=== PATIENT | male | born 1980 | race Two or more races ===

== ENCOUNTER 2018-09-04 18:58 | Emergency (ER) | payer SELFPAY ==
--- NOTE | 2018-09-04 19:15 | ER Document Report ---
ED Medical Screen (RME) - General Chief Complaint: Flank Pain Stated Complaint: FLANK PAIN Time Seen by Provider: 09/04/18 19:10 Primary Care Provider: GUS NELSON MD [Primary Care Provider] - Follow up as needed Mode of Arrival: Ambulatory Information source: Patient Notes: Patient presents to the emergency department with left-sided flank pain since yesterday. Reports he has been taking ibuprofen without relief of symptoms. Reports he is vomited twice. Denies fever diarrhea. Denies difficulty voiding. Denies testicular pain. Denies history of kidney stones. Reports his mother has history of kidney stones. Reports he drinks mild mainly water. Denies trauma patient left flank tender to palpation I have greeted and performed a rapid initial assessment of this patient. A comprehensive ED assessment and evaluation of the patient, analysis of test results and completion of the medical decision making process will be conducted by additional ED providers. Dictation of this chart was performed using voice recognition software; therefore, there may be some unintended grammatical errors. TRAVEL OUTSIDE OF THE [place] IN LAST 30 DAYS: No - Related Data Allergies/Adverse Reactions: No Known Allergies Allergy (Verified 09/04/18 18:59) Physical Exam - Vital signs Vitals: Temp Pulse Resp BP Pulse Ox 97.7 F 83 16 137/96 H 97 09/04/18 19:03 09/04/18 19:03 09/04/18 19:03 09/04/18 19:03 09/04/18 19:03 Course - Vital Signs Vital signs: Temp Pulse Resp BP Pulse Ox 97.7 F 83 16 137/96 H 97 09/04/18 19:03 09/04/18 19:03 09/04/18 19:03 09/04/18 19:03 09/04/18 19:03 Doctor's Discharge - Discharge Referrals: GUS NELSON MD [Primary Care Provider] - Follow up as needed
[2018-09-04 20:01] LABS: ABSOLUTE BASOPHILS # (AUTO) 0.1 10^3/uL (0.0-0.2); ABSOLUTE EOSINOPHILS # (AUTO) 0.2 10^3/uL (0.0-0.6); ABSOLUTE LYMPHOCYTES (AUTO) 2.7 10^3/uL (0.5-4.7); ABSOLUTE NEUT (AUTO) 9.6 10^3/uL (1.7-8.2); BASOPHILS % (AUTO) 0.4 % (0-2); EOSINOPHILS % (AUTO) 1.2 % (0-6); MEAN CORPUSCULAR HEMOGLOBIN 31.2 pg (27.0-33.4); MEAN CORPUSCULAR VOLUME 92 fl (80-97); MONOCYTES % (AUTO) 7.2 % (3-13); PLATELET COUNT 278 10^3/uL (150-450); RED BLOOD COUNT 4.79 10^6/uL (4.35-5.55); RED CELL DISTRIBUTION WIDTH 13.7 % (11.5-14.0); SEGMENTED NEUTROPHILS % (AUTO) 71.2 % (42-78); TOTAL CELLS COUNTED % (AUTO) 100 %; WHITE BLOOD COUNT 13.4 10^3/uL (4.0-10.5)
[2018-09-04 20:05] LABS: APPEARANCE,URINE CLEAR; BILIRUBIN,URINE NEGATIVE (NEGATIVE); COLOR,URINE STRAW; GLUCOSE, URINE NEGATIVE (NEGATIVE); KETONES,URINE NEGATIVE (NEGATIVE); LEUKOCYTE ESTERASE,URINE NEGATIVE (NEGATIVE); NITRITE,URINE NEGATIVE (NEGATIVE); PROTEIN,URINE 100 mg/dL (NEGATIVE); URINE SPECIFIC GRAVITY 1.008; UROBILINOGEN,URINE NEGATIVE mg/dL (<2.0)
[2018-09-04 20:19] LABS: ALANINE AMINOTRANSFERASE 24 U/L (21-72); ALBUMIN 4.4 g/dL (3.5-5.0); ALKALINE PHOSPHATASE 80 U/L (38-126); ANION GAP 12 (5-19); ASPARTATE AMINO TRANSFERASE 22 U/L (17-59); BILIRUBIN,DIRECT 0.3 mg/dL (0.0-0.4); BILIRUBIN,TOTAL 0.6 mg/dL (0.2-1.3); BLOOD UREA NITROGEN 15 mg/dL (7-20); CALCIUM 9.6 mg/dL (8.4-10.2); CARBON DIOXIDE 25 mmol/L (22-30); CHLORIDE 104 mmol/L (98-107); GLUCOSE 108 mg/dL (75-110); POTASSIUM 4.3 mmol/L (3.6-5.0); SODIUM 140.7 mmol/L (137-145); TOTAL PROTEIN 7.5 g/dL (6.3-8.2)
[2018-09-04] MEDS ORDERED: ACETAMINOPHEN 325 MG TABLET PO ONE (20:29)
[2018-09-04] MEDS ORDERED: ACETAMINOPHEN 325 MG TABLET ONE (20:30)
--- NOTE | 2018-09-04 20:30 | RADIOLOGY REPORT (SQ) ---
EXAM DESCRIPTION: CT ABDOMEN PELVIS WITHOUT IV CONTRAST COMPLETED DATE/TME: 09/04/2018 19:14 CLINICAL HISTORY: 38 years, Male, flank pain Technologist note: LEFT flank pain. COMPARISON: None. TECHNIQUE: CT of the abdomen and pelvis was performed following intravenous administration of contrast. Oral contrast was not administered. Multiplanar reformatted images were provided. This exam was performed according to our departmental dose optimization program which includes use of automated exposure control, adjustment of the mA and/or kV according to patient size and/or use of iterative reconstruction technique. Images stored on PACS. All CT scanners at this facility use dose modulation, iterative reconstruction, and/or weight based dosing when appropriate to reduce radiation dose to as low as reasonably achievable (ALARA). [facility]: Dose Right [facility]: CareDose [facility]: Dose Right [facility]: Teradose 4D [facility]: [email or web address] LIMITATIONS: None. FINDINGS: Chest: Evaluation through the lung bases reveals no focal opacity, pleural effusion or pneumothorax. Heart size is within normal limits. No pericardial effusion. Abdomen and pelvis: Moderate hydronephrosis of the LEFT kidney with perinephric and periureteral stranding secondary to recently passed calculus measuring 2 mm within the dependent LEFT side bladder. The possibility of superimposed infectious process cannot be excluded on a noncontrast CT examination. Thickened appearance of the bladder wall may be secondary to incomplete distention, however can be seen in the setting of infectious or inflammatory process. Please correlate with laboratory values. The liver, gallbladder, pancreas, spleen, RIGHT kidney and bilateral adrenal glands are within normal limits. The vessels are patent and normal in caliber. No abdominopelvic lymph nodes are noted to be pathologically enlarged by CT measurement criteria. The bowel is within normal limits without abnormal bowel wall thickness or bowel dilation. No free air. No free abdominopelvic fluid collections. The appendix is within normal limits. The osseous structures are within normal limits. IMPRESSION: 1. Moderate hydronephrosis of the LEFT kidney with perinephric and periureteral stranding secondary to recently passed calculus measuring 2 mm within the dependent LEFT side bladder. The possibility of superimposed infectious process cannot be excluded on a noncontrast CT examination. 2. Thickened appearance of the bladder wall may be secondary to incomplete distention, however can be seen in the setting of infectious or inflammatory process. Please correlate with laboratory values. TECHNICAL DOCUMENTATION: Quality ID # [id number]: Final reports with documentation of one or more dose reduction techniques (e.g., Automated exposure control, adjustment of the mA and/or kV according to patient size, use of iterative reconstruction technique) copyright 2011 [employer]- All Rights Reserved
[2018-09-04] MEDS ORDERED: HYDROCODONE/ACETAMINOPHEN 5-325 MG (6 TAB/ER DISP) PO PRN (22:11)
[2018-09-04] MEDS ORDERED: ONDANSETRON ODT 4 MG TAB (6 TAB/ER DISP) PO PRN (22:11)
--- NOTE | 2018-09-04 22:16 | ER Document Report ---
ED General - General Chief Complaint: Flank Pain Stated Complaint: FLANK PAIN Time Seen by Provider: 09/04/18 19:10 Primary Care Provider: GUS NELSON MD [Primary Care Provider] - Follow up as needed Mode of Arrival: Ambulatory Information source: Patient TRAVEL OUTSIDE OF THE [place] IN LAST 30 DAYS: No - HPI Patient complains to provider of: Left flank pain Onset: Yesterday Onset/Duration: Sudden Severity: Moderate Pain Level: 2 Associated symptoms: None. denies: Chills, Diarrhea, Fever, Nausea, Vomiting Exacerbated by: Denies Relieved by: Denies Similar symptoms previously: No Recently seen / treated by doctor: No Notes: 36-year-old male patient coming in today with left flank pain going on since yesterday. Some mild nausea. No vomiting. No fevers or chills. No dysuria. No hematuria. - Related Data Allergies/Adverse Reactions: No Known Allergies Allergy (Verified 09/04/18 18:59) Past Medical History - General Information source: Patient - Social History Smoking Status: Unknown if Ever Smoked Frequency of alcohol use: None Family History: Reviewed & Not Pertinent Patient has suicidal ideation: No Patient has homicidal ideation: No Renal/ Medical History: Denies: Hx Peritoneal Dialysis Review of Systems - Review of Systems Notes: Constitutional: No fevers. No chills. EENT: No eye redness. No eye pain. No ear pain. No sore throat. Cardiovascular: No chest pain. No palpitations. Respiratory: No cough. No shortness of breath. No respiratory distress. Gastrointestinal: Positive left flank pain and nausea. Negative vomiting and diarrhea Genitourinary: Atraumatic. No lesions. No pain. No discharge. Musculoskeletal: Atraumatic. No swelling. No deformities. Skin: No rash or lesions. Lymphatic: No swollen lymph nodes. Neurologic: No headache. No syncope. Psychiatric: No suicidal or homicidal ideation. Physical Exam - Vital signs Vitals: Temp Pulse Resp BP Pulse Ox 97.7 F 83 16 137/96 H 97 09/04/18 19:03 09/04/18 19:03 09/04/18 19:03 09/04/18 19:03 09/04/18 19:03 - Notes Notes: General: Well-developed, well-nourished. In no acute distress. Non-toxic appearing. Cardiac: Well-perfused. Regular rate and rhythm. No murmurs, rubs, or gallops. Pulmonary: No respiratory distress. No cyanosis. Bilateral lung fiels are clear to auscultation. Abdominal: Non-distended. Non-rigid. Bowels sounds are present in all four quadrants. No guarding or rebound. HEENT: Head is atraumatic. Conjunctivae not reddened. No tearing. PERRL. EOMI. Orbits atraumatic. No periorbital swelling or erythema. Oropharynx is without erythema, swelling, or exudates. Neck: Supple. No adenopathy. No meningismus. Dermatologic: Warm with good turgor. No rash. Atraumatic. Chest: Atraumatic. No chest wall tenderness to palpation. Musculoskeletal: Moves all extremities well. No range of motion deficits. no muscular or joint tenderness. No paraspinal muscle tenderness. no midline spinal tenderness or step-off. Genitourinary: Examination deferred Neurologic: No gross neurologic deficits. Psychiatric: Normal mood. Course - Re-evaluation Re-evalutation: 09/04/18 22:15 CT scan shows moderate left hydro-he does appear to be a recently passed 2 mm stone from the left side. No other stones are seen. Creat is 1.7 I suspect given that the stone is passed that this will improve. We will have the patient follow-up for his elevated creatinine in a couple of days on Thursday. He will go home with [employer] and [employer] take-home packs. - Vital Signs Vital signs: Temp Pulse Resp BP Pulse Ox 97.7 F 83 16 137/96 H 97 09/04/18 19:03 09/04/18 19:03 09/04/18 19:03 09/04/18 19:03 09/04/18 19:03 - Laboratory Result Diagrams: 09/04/18 19:44 09/04/18 19:44 Laboratory results interpreted by me: 09/04/18 09/04/18 09/04/18 19:44 19:44 19:44 WBC 13.4 H Absolute Neutrophils 9.6 H Creatinine 1.70 H Est GFR ( Amer) 54 L Est GFR (Non-Af Amer) 45 L Urine Protein 100 H Urine Blood MODERATE H Discharge - Discharge Clinical Impression: Kidney stone, Elevated serum creatinine, Elevated blood pressure reading Condition: Good Disposition: HOME, SELF-CARE Instructions: Kidney Stone (COUNTS INCLUDE 234 BEDS AT THE [facility]) Additional Instructions: Your CAT scan shows that you recently passed a 2 mm kidney stone. We do not see any other kidney stones anywhere else at this point. You may take [place] for pain and Zofran as needed for nausea. These will be dispensed to you tonight in separate bottles. Your blood chemistry panel shows an elevated serum creatinine level. This is most likely because you recently had a kidney stone. I suspect this levels will go back to normal within a few days. Be sure to drink plenty of fluid over the next couple days. [facility] or with your primary care doctor to get the serum creatinine rechecked to make sure that it is going back to normal. Forms: Return to Work Referrals: GUS NELSON MD [Primary Care Provider] - Follow up as needed
[2018-09-04 22:35] VITALS: BP 132/80
== END 2018-09-04 22:40 | disposition home or self-care (01) ==
LOC: ER 18:58
DX: N20.0 Calculus of kidney (principal); R79.89 Other specified abnormal findings of blood chemistry; R03.0 Elevated blood-pressure reading, without diagnosis of hypertension; R10.9 Unspecified abdominal pain; R11.0 Nausea
CPT/HCPCS: 36415; 74176; 80053; 81001; 85025; 99284